=== PATIENT | female | born 2000 | race Caucasian/White ===

== ENCOUNTER 2020-08-29 04:59 | Emergency (ER) | payer OTHER ==
[~2020-08-29] VITALS: Ht 172.7 cm; Wt 89.9 kg
[2020-08-29 06:08] VITALS: BP 148/89
[2020-08-29 09:09] LABS: BASO % 0.3 % (0.0-1.0); HEMATOCRIT 43.8 % (36.0-47.0); HEMOGLOBIN 13.6 g/dl (12.0-15.5); LYMPH # 0.6 10^3/uL (1.5-5.0); LYMPH % 14.8 % (24.0-44.0); MEAN CORPUSCULAR HEMOGLOBIN 28.2 pg (27.0-33.0); MEAN CORPUSCULAR HGB CONC 31.1 g/dl (32.0-36.5); MEAN CORPUSCULAR VOLUME 90.7 fl (80.0-96.0); MONO # 0.3 10^3/uL (0.0-0.8); MONO % 6.7 % (2.0-8.0); NEUTROPHILS # 2.9 10^3/uL (1.5-8.5); NEUTROPHILS % 77.9 % (36.0-66.0); PLATELET COUNT, AUTOMATED 225 10^3/uL (150-450); RED BLOOD COUNT 4.83 10^6/uL (4.00-5.40); WHITE BLOOD COUNT 3.7 10^3/uL (4.0-10.0)
[2020-08-29 09:35] LABS: HCG, SERUM QUALITATIVE NEGATIVE (NEGATIVE)
[2020-08-29 09:36] LABS: ALBUMIN 4.2 GM/DL (3.2-5.2); ALT/SGPT 22 U/L (12-78); BILIRUBIN,DIRECT < 0.1 MG/DL (0.0-0.2); BILIRUBIN,TOTAL 0.2 MG/DL (0.2-1.0); BLOOD UREA NITROGEN 9 MG/DL (7-18); CALCIUM LEVEL 10.1 MG/DL (8.5-10.1); CARBON DIOXIDE LEVEL 26 MEQ/L (21-32); CHLORIDE LEVEL 108 MEQ/L (98-107); CREATININE FOR GFR 0.66 MG/DL (0.55-1.30); FERRITIN 20 NG/ML (8-252); GLOMERULAR FILTRATION RATE > 60.0 (>60); GLUCOSE, FASTING 97 MG/DL (70-100); LDH LACTATE DEHYDROGENASE 174 U/L (84-246); LIPASE 151 U/L (73-393); POTASSIUM SERUM 4.1 MEQ/L (3.5-5.1); SODIUM LEVEL 140 MEQ/L (136-145); TOTAL PROTEIN 7.9 GM/DL (6.4-8.2); TROPONIN I < 0.02 NG/ML (< 0.10)
[2020-08-29 09:50] LABS: ERYTHROCYTE SEDIMENTATION RATE 21 mm/hr (0-20)
[2020-08-29] MEDS ORDERED: ISOVUE-370 76% 100ML VIAL As Ordered ONE (09:57)
--- NOTE | 2020-08-29 10:36 | REP ---
INDICATION: rlq pain, r/o appendix. +covid. COMPARISON: None. TECHNIQUE: Helical scanning was acquired and 4 mm axial images are re-formatted. Coronal and sagittal MPR images were generated and reviewed. The contrast enhancement dose is 100 mL of intravenous Isovue 370. 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 Normal bowel gas pattern. On axial CT images, the lung bases are clear bilaterally. There is no evidence of pleural effusion or upper abdominal ascites. There is minimal diffuse fatty infiltration of the liver. No focal liver lesion is seen. There is aa 9 mm nodular density within the lumen of the gallbladder along its anterior margin which may be a stone or polyp. No other gallbladder abnormality is seen. Common bile duct is not dilated. No pancreatic abnormality is observed. Normal adrenal glands are observed. The kidneys enhance symmetrically. There is a 3 mm intrarenal calculus in the lower pole the right kidney. In addition, there is a angular 8 mm calculus in the ureteropelvic junction on the right producing mild right-sided hydronephrosis. No intrarenal calculus is noted on the left. No left-sided hydronephrosis is seen. Normal appendix is observed. Urinary bladder is unremarkable. The uterus is tipped to the right but appears intact. There is an ovarian cyst in the left ovary measuring 4.7 x 4.2 by 4.8 cm. No free fluid is noted. Small and large intestinal bowel loops are unremarkable. No abdominal wall defect or bony destructive lesion is seen. The exam is otherwise unremarkable. IMPRESSION: Mild right-sided hydronephrosis due to a 8 mm minimally obstructing right ureteropelvic junction calculus. There is also a 3 mm intrarenal calculus in the right kidney lower pole. Normal appendix. There is a 9 mm density along the nondependent wall within the lumen of the gallbladder, stone versus polyp. <Electronically signed by Jake Ruiz > 08/29/20 [id number]
[2020-08-29] MEDS ORDERED: FLOM0.4C39 PO (12:44)
[2020-08-29] MEDS ORDERED: IBUP-1022 PO (12:45)
== END 2020-08-29 13:07 | disposition home or self-care (01) ==
LOC: M ED 04:59
DX: N20.1 Calculus of ureter (principal); Z77.098 Contact with and (suspected) exposure to other hazardous, chiefly nonmedicinal, chemicals
CPT/HCPCS: 36415; 74177; 80047; 80048; 80076; 81001; 82728; 83605; 83615; 83690; 84484; 84702; 84703; 85025; 85379; 85652; 86140; 87086; 99284; Q9967